=== PATIENT | male | born 1975 | race Caucasian/White ===

== ENCOUNTER 2017-01-05 23:34 | Emergency (ER) | payer MEDICAID, OTHER ==
[2017-01-05 23:46] VITALS: TEMP 98.6
--- NOTE | 2017-01-05 23:51 | C.PDOC ---
History Of Present Illness 41 yo male, hx of schziprhenia, dm, presents with "blister to 1st digit on right foot, plantar surface, and posterior foot" . and b/l leg swelling. pt states symptoms started yesterday. pt states he was d/c from [facility] floor last week and "given a cream" for the feet, unsure of name. no fevers, no n/v/d, trauma, or other complaints Time Seen by Provider: 01/05/17 23:48 Chief Complaint (Nursing): Lower Extremity Problem/Injury Past Medical History Reviewed: Historical Data, Nursing Documentation, Vital Signs Vital Signs: Last Vital Signs Temp 98.6 F 01/05/17 23:43 Pulse 70 01/06/17 01:02 Resp 14 01/06/17 01:02 BP 118/78 01/06/17 01:02 Pulse Ox 99 01/06/17 02:34 - Medical History PMH: Diabetes, HTN, Paranoia, Schizophrenia Family History: States: Unknown Family Hx - Social History Hx Tobacco Use: No Hx Alcohol Use: No Hx Substance Use: No - Immunization History Hx Tetanus Toxoid Vaccination: No Hx Influenza Vaccination: No Hx Pneumococcal Vaccination: No Review Of Systems Except As Marked, All Systems Reviewed And Found Negative. Skin: Positive for: Other (ulcer to 1st digit on left) Physical Exam - Physical Exam Appears: Well, No Acute Distress, Other (ambulatory in er in nad) Skin: Normal Color, Warm, Dry Eye(s): bilateral: Normal Inspection, PERRL, EOMI Nose: Normal Throat: Normal Neck: Normal Cardiovascular: Rhythm Regular Respiratory: Normal Breath Sounds Gastrointestinal/Abdominal: Normal Exam Back: Normal Inspection Extremity: Normal ROM, No Deformity, Other ((+)small <0.5 cm ulcer to first toe , superficial, minimal loss of epidermis minimal ulcer to calcaneous and plantar surface, no surrouding erythema, no purlent d/c. no ttp. ) ED Course And Treatment - Laboratory Results Result Diagrams: 01/05/17 23:50 01/05/17 23:50 O2 Sat by Pulse Oximetry: 99 Medical Decision Making Medical Decision Making: suspect ulcer 2/2 dm. no e/o of active infection. r/o dvt. dimer pending 1254: labs foot xr neg. advise supportive care and outpt f/u. labs unremarkable. no leukocytosis. blister x 1 day, doubt osteo. given wound care f/ u. mild hyperglyecmia, no e/o of dka. pt encouraged to seek wound care for diabetes. strict return precautions advised. Disposition - Disposition Referrals: [facility] [Outside] [facility] [Outside] [facility] [Outside] [facility] [Outside] Disposition: HOME/ ROUTINE Disposition Time: 00:51 Condition: STABLE Additional Instructions: please follow up with specialist/clinic return to er with worsening symptoms or concerns. Prescriptions: Bacitracin OINT 1 applic TP DAILY #7 tube Instructions: Diabetic Foot Care (ED), Diabetic Foot Ulcers (ED) - Clinical Impression Clinical Impression: Foot ulcer
[2017-01-06 00:30] LABS: BASO % 0.5 % (0.0-2.0); EOS # 0.1 K/uL (0.0-0.7); EOS % 1.6 % (0.0-4.0); HEMOGLOBIN 11.5 g/dL (12.0-18.0); LYMPH # 1.2 K/uL (1.0-4.3); LYMPH % 13.2 % (20.0-40.0); MEAN CELL VOLUME 86.1 fL (80.0-94.0); MEAN CORPUSCULAR HEMOGLOBIN 27.7 pg (27.0-31.0); MEAN CORPUSCULAR HGB CONC 32.2 g/dL (33.0-37.0); MEAN PLATELET VOLUME 8.8 fL (7.2-11.7); MONO # 0.6 K/uL (0.0-0.8); MONO % 6.1 % (0.0-10.0); NEUT # 7.2 K/uL (1.8-7.0); NEUT % 78.6 % (50.0-75.0); RBC 4.16 Mil/uL (4.40-5.90); RED CELL DISTRIBUTION WIDTH 13.5 % (11.5-14.5); WHITE BLOOD COUNT 9.2 K/uL (4.8-10.8)
[2017-01-06 00:35] LABS: ALBUMIN 3.8 g/dL (3.5-5.0)
[2017-01-06 00:38] LABS: ALB/GLOB RATIO 1.2 (1.0-2.1); AST/SGOT 29 U/L (17-59); BLOOD UREA NITROGEN 17 mg/dL (9-20); GFR AFRICAN-AMERICAN > 60; GFR NON-AFRICAN AMERICAN > 60
[2017-01-06 00:39] LABS: ALT/SGPT 33 U/L (21-72); CALCIUM 9.2 mg/dl (8.6-10.4)
[2017-01-06 00:46] LABS: PARTIAL THROMBOPLASTIN TIME 32 SECONDS (21-34); PROTHROMBIN TIME 11.7 SECONDS (9.7-12.2)
[2017-01-06 00:47] LABS: D DIMER < 200 ng/mlDDU (0-243)
[2017-01-06 01:03] VITALS: BP 118/78; PULSE 70; RESP 14
[2017-01-06 01:13] VITALS: O2SAT 99
--- NOTE | 2017-01-06 09:13 | RAD ---
PROCEDURE: Right Foot Radiographs. HISTORY: foot pain COMPARISON: None. FINDINGS: BONES: No evidence of acute displaced fracture nor dislocation. The osseous appear intact. No cortical destructive changes. Small plantar posterior calcaneal surfaces in the right noted. JOINTS: Normal. SOFT TISSUES: Mild vascular calcifications. No radiopaque foreign body seen. OTHER FINDINGS: None. IMPRESSION: No e evidence of acute displaced fracture nor dislocation. . If symptoms persist or occult fracture suspected clinically recommend repeat radiographs 5-10 days as most fractures should become radiographically evident this timeframe.
== END 2017-01-06 01:00 | disposition home or self-care (01) ==
LOC: C.ER 23:34
DX: L97.529 Non-pressure chronic ulcer of other part of left foot with unspecified severity (principal)

== ENCOUNTER 2017-02-23 19:29 | Emergency (ER) | payer OTHER ==
--- NOTE | 2017-02-23 20:00 | C.PDOC ---
History Of Present Illness 41 y/o male hx of IDDM presents to the ED c/o abdominal pain, nausea, vomiting, leg and foot pain that started yesterday .The patient denies fever, chills, and headache. Time Seen by Provider: 02/23/17 20:00 Chief Complaint (Nursing): Abdominal Pain History Per: Patient History/Exam Limitations: no limitations Onset/Duration Of Symptoms: Days Current Symptoms Are (Timing): Still Present Past Medical History Reviewed: Historical Data, Nursing Documentation, Vital Signs Vital Signs: Last Vital Signs Temp 100.9 F H 02/23/17 19:43 Pulse 115 H 02/23/17 19:43 Resp 18 02/23/17 19:43 BP 138/85 02/23/17 19:43 Pulse Ox 99 02/23/17 20:28 - Medical History PMH: Diabetes, HTN, Paranoia, Schizophrenia Surgical History: No Surg Hx Family History: States: Unknown Family Hx - Social History Hx Tobacco Use: No Hx Alcohol Use: No Hx Substance Use: No - Immunization History Hx Tetanus Toxoid Vaccination: No Hx Influenza Vaccination: No Hx Pneumococcal Vaccination: No Review Of Systems Except As Marked, All Systems Reviewed And Found Negative. Constitutional: Negative for: Fever, Chills Respiratory: Negative for: Shortness of Breath Gastrointestinal: Positive for: Nausea, Vomiting, Abdominal Pain, Other (The pain level is a 4 out of 10. ) Musculoskeletal: Positive for: Foot Pain Physical Exam - Physical Exam Appears: Non-toxic, No Acute Distress, Other (speaking in complete sentences ) Skin: Warm, Dry Head: Normacephalic Lips: Other (dry) Neck: Supple Chest: Symmetrical Cardiovascular: Rhythm Regular Respiratory: No Rales, No Rhonchi Gastrointestinal/Abdominal: Soft, No Tenderness, No Guarding, No Rebound, Other (mild diffuse discomfort ) Extremity: No Deformity, No Swelling Neurological/Psych: Oriented x3 ED Course And Treatment - Laboratory Results Result Diagrams: 02/23/17 20:35 02/23/17 20:35 O2 Sat by Pulse Oximetry: 99 (RA) Medical Decision Making Medical Decision Making: Upon provider reevaluation patient is feeling better, is medically stable, and requires no further treatment in the ED at this time. Patient will be discharged home with Rx for zofran . Counseling was provided and all questions were answered regarding diagnosis and need for follow up with dr mason. There is agreement to discharge plan. Return if symptoms persist or worsen. Disposition Counseled Patient/Family Regarding: Studies Performed, Diagnosis, Need For Followup, Rx Given - Disposition Referrals: Rigoberto Mason MD [Medical Doctor] - Disposition: HOME/ ROUTINE Disposition Time: 20:00 Condition: FAIR Prescriptions: Ondansetron ODT [Zofran ODT] 1 odt PO BID PRN #10 odt PRN Reason: Nausea/Vomiting Instructions: Acute Nausea and Vomiting (ED), Diabetic Hyperglycemia (ED) Forms: [employer] (Estonian) - POA Present On Arrival: Poor Glycemic Control - Clinical Impression Clinical Impression: Nausea, Vomiting, Hyperglycemia - Scribe Statement The provider has reviewed the documentation as recorded by the Scribterri Patel All medical record entries made by the Scribe were at my direction and personally dictated by me. I have reviewed the chart and agree that the record accurately reflects my personal performance of the history, physical exam, medical decision making, and the department course for this patient. I have also personally directed, reviewed, and agree with the discharge instructions and disposition.
[2017-02-23] MEDS ORDERED: Sodium Chloride 0.9% 1,000 ML IV ONE (20:28)
[2017-02-23] MEDS ORDERED: Sodium Chloride 0.9% 1,000 ML ONE (20:38)
[2017-02-23 20:40] LABS: BASO % 0.2 % (0.0-2.0); EOS % 0.3 % (0.0-4.0); HEMATOCRIT 41.8 % (35.0-51.0); LYMPH # 0.4 K/uL (1.0-4.3); LYMPH % 3.7 % (20.0-40.0); MEAN CORPUSCULAR HGB CONC 33.7 g/dL (33.0-37.0); MEAN PLATELET VOLUME 9.4 fL (7.2-11.7); MONO # 0.6 K/uL (0.0-0.8); MONO % 4.8 % (0.0-10.0); PLATELET COUNT 249 K/uL (130-400); RED CELL DISTRIBUTION WIDTH 12.6 % (11.5-14.5); WHITE BLOOD COUNT 11.6 K/uL (4.8-10.8)
[2017-02-23 20:43] LABS: RBC URINE < 1 /hpf (0-3); URINE BACTERIA RARE (<OCC); URINE BILIRUBIN NEGATIVE (NEGATIVE); URINE BLOOD NEGATIVE (NEGATIVE); URINE COLOR Yellow (YELLOW); URINE GLUCOSE (UA) 3+ mg/dL (Normal); URINE KETONE 1+ mg/dL (NEGATIVE); URINE LEUKOCYTE ESTERASE NEG Leu/uL (Negative); URINE PROTEIN 2+ mg/dL (NEGATIVE); URINE UROBILINOGEN NORMAL mg/dL (0.2-1.0); WBC URINE < 1 /hpf (0-5)
[2017-02-23 20:50] LABS: ALB/GLOB RATIO 1.3 (1.0-2.1); ALKALINE PHOSPHATASE 112 U/L (38-126); ALT/SGPT 31 U/L (21-72); AST/SGOT 20 U/L (17-59); BILIRUBIN,TOTAL 1.5 mg/dL (0.2-1.3); BLOOD UREA NITROGEN 26 mg/dL (9-20); CALCIUM 10.4 mg/dl (8.6-10.4); CARBON DIOXIDE 28 mmol/L (22-30); CHLORIDE 89 mmol/L (98-107); GFR AFRICAN-AMERICAN > 60; POTASSIUM 4.8 mmol/L (3.6-5.2); SODIUM 136 mmol/L (132-148)
[2017-02-23 20:51] LABS: GLUCOSE,RANDOM 448 mg/dL (75-110)
[2017-02-23 20:58] LABS: VENOUS BLOOD GAS BASE EXCESS 3.1 mmol/L (0.0-2.0); VENOUS BLOOD GAS PCO2 51 mmHg (40-60); VENOUS BLOOD PH 7.37 (7.32-7.43)
[2017-02-23 21:07] LABS: NEUTROPHIL 81 % (50-75); TOTAL CELLS COUNTED 100
[2017-02-23 21:08] LABS: LARGE PLATELETS PRESENT
[2017-02-23] MEDS ORDERED: (Novolin R) Insulin Human Regular 100 units/ml vial IV ONE (22:39)
[2017-02-23] MEDS ORDERED: (Novolin R) Insulin Human Regular 100 units/ml vial ONE (22:41)
[2017-02-24 00:07] VITALS: BP 126/86; PULSE 114; RESP 16; TEMP 97.6; O2SAT 100
== END 2017-02-24 00:07 | disposition home or self-care (01) ==
LOC: C.ER 19:29
DX: R11.2 Nausea with vomiting, unspecified (principal); E11.65 Type 2 diabetes mellitus with hyperglycemia
CPT/HCPCS: 80053; 81001; 82009; 82803; 82948; 83690; 85025; 96361; 96374; 96375; 99285; J1885; J2405; J7040

== ENCOUNTER 2018-05-01 08:57 | Emergency (ER) | payer OTHER ==
[2018-05-01 09:09] VITALS: BMI 25.1
[2018-05-01 09:15] VITALS: TEMP 97.9
[2018-05-01] MEDS ORDERED: Sodium Chloride 0.9% 1,000 ML IV ONE (09:32)
--- NOTE | 2018-05-01 09:32 | C.PDOC ---
History Of Present Illness 42 y/o male with history of DM and HTN presents to ED with c/o nausea, vomiting and diarrhea associated with diffuse abdominal pain since last night after eating pork and rice. Patient states no one else ate same food and reports last episode of vomiting [employer]. Patient denies recent travel, sick contacts, blood in stool or in emesis, dizziness, chest pain, fever, chills, dysuria, hematuria or any other complaints at this time. Time Seen by Provider: 05/01/18 09:14 Chief Complaint (Nursing): Abdominal Pain History Per: Patient History/Exam Limitations: no limitations Onset/Duration Of Symptoms: Days Current Symptoms Are (Timing): Still Present Location Of Pain/Discomfort: Diffuse Past Medical History Reviewed: Historical Data, Nursing Documentation, Vital Signs Vital Signs: Last Vital Signs Temp 97.9 F 05/01/18 09:09 Pulse 102 H 05/01/18 09:09 Resp 20 05/01/18 09:09 BP 144/89 05/01/18 09:09 Pulse Ox 100 05/01/18 09:09 - Medical History PMH: Asthma, Diabetes, HTN, Paranoia, Schizophrenia Surgical History: No Surg Hx Family History: States: No Known Family Hx - Social History Hx Tobacco Use: No Hx Alcohol Use: No Hx Substance Use: No - Immunization History Hx Tetanus Toxoid Vaccination: No Hx Influenza Vaccination: Yes Hx Pneumococcal Vaccination: No Review Of Systems Constitutional: Negative for: Fever, Chills Gastrointestinal: Positive for: Nausea, Vomiting, Abdominal Pain, Diarrhea. Negative for: Hematochezia, Hematemesis Genitourinary: Negative for: Dysuria, Hematuria Musculoskeletal: Negative for: Back Pain Skin: Negative for: Rash Physical Exam - Physical Exam Appears: Non-toxic, No Acute Distress Skin: Warm, Dry, No Rash Head: Atraumatic, Normacephalic Eye(s): bilateral: Normal Inspection Oral Mucosa: Moist Neck: Normal ROM, Supple Cardiovascular: Rhythm Regular Respiratory: Normal Breath Sounds, No Rales, No Rhonchi, No Wheezing Gastrointestinal/Abdominal: Bowel Sounds, Soft, No Tenderness, No Guarding, No Rebound Back: No CVA Tenderness Neurological/Psych: Oriented x3, Normal Speech, Normal Cognition ED Course And Treatment - Laboratory Results Result Diagrams: 05/01/18 09:58 05/01/18 09:58 O2 Sat by Pulse Oximetry: 100 (RA) Pulse Ox Interpretation: Normal Medical Decision Making Medical Decision Making: Plan: Blood work, UA ordered. Zofran and IV fluids administered. Progress: 11:25 re eval patient feels better, will po challenge , accu-check, d/c 11:30 Patient tolerated po challenge, able to go home, accu check 285,. Patient will follow up with PMD in 1-2 days. Disposition Counseled Patient/Family Regarding: Studies Performed, Diagnosis, Need For Followup - Disposition Referrals: Rigoberto Mason MD [Medical Doctor] - Disposition: HOME/ ROUTINE Disposition Time: 11:39 Instructions: Diarrhea in Adolescents and Adults, Hyperglycemia, Adult, Clear Liquid Diet, Nausea and Vomiting, Adult Forms: [employer] ([place]), General Discharge Instructions - POA Present On Arrival: None - Clinical Impression Clinical Impression: Nausea and vomiting, Abdominal pain, Diarrhea, Hyperglycemia - Scribe Statement The provider has reviewed the documentation as recorded by the Evangelista Thompson All medical record entries made by the Jermainibterri were at my direction and personally dictated by me. I have reviewed the chart and agree that the record accurately reflects my personal performance of the history, physical exam, medical decision making, and the department course for this patient. I have also personally directed, reviewed, and agree with the discharge instructions and disposition.
[2018-05-01] MEDS ORDERED: Sodium Chloride 0.9% 1,000 ML ONE (09:44)
[2018-05-01 10:07] LABS: BASO % 0.4 % (0.0-2.0); EOS # 0.1 K/uL (0.0-0.7); EOS % 0.8 % (0.0-4.0); LYMPH % 7.6 % (20.0-40.0); MEAN CELL VOLUME 84.1 fL (80.0-94.0); MEAN CORPUSCULAR HEMOGLOBIN 27.4 pg (27.0-31.0); MEAN CORPUSCULAR HGB CONC 32.5 g/dL (33.0-37.0); MEAN PLATELET VOLUME 8.6 fL (7.2-11.7); MONO # 0.6 K/uL (0.0-0.8); MONO % 5.1 % (0.0-10.0); NEUT % 86.1 % (50.0-75.0); PLATELET COUNT 310 K/uL (130-400); RBC 4.75 Mil/uL (4.40-5.90); RED CELL DISTRIBUTION WIDTH 13.3 % (11.5-14.5); WHITE BLOOD COUNT 12.7 K/uL (4.8-10.8)
[2018-05-01 10:09] LABS: SQUAMOUS EPITHIAL < 1 /hpf (0-5); URINE BILIRUBIN NEGATIVE (NEGATIVE); URINE BLOOD NEGATIVE (NEGATIVE); URINE CLARITY Clear (Clear); URINE COLOR Yellow (YELLOW); URINE GLUCOSE (UA) 3+ mg/dL (Normal); URINE LEUKOCYTE ESTERASE NEG Leu/uL (Negative); URINE PROTEIN 2+ mg/dL (NEGATIVE); URINE UROBILINOGEN NORMAL mg/dL (0.2-1.0)
[2018-05-01 10:38] LABS: ALB/GLOB RATIO 1.3 (1.0-2.1); ALBUMIN 4.6 g/dL (3.5-5.0); BLOOD UREA NITROGEN 19 mg/dL (9-20); CALCIUM 9.8 mg/dl (8.6-10.4); GFR NON-AFRICAN AMERICAN > 60; LIPASE 30 U/L (23-300)
[2018-05-01 10:39] LABS: ALT/SGPT 36 U/L (21-72); AST/SGOT 28 U/L (17-59)
[2018-05-01 11:27] VITALS: BP 152/82; PULSE 98; RESP 18
[2018-05-01 11:39] VITALS: O2SAT 100
[2018-05-01 12:11] LABS: LYMPHOCYTE 6 % (20-40); MONOCYTE 5 % (0-10); TOTAL CELLS COUNTED 100
[2018-05-01 12:12] LABS: PLATELET ESTIMATE NORMAL (NORMAL)
[2018-05-01 12:13] LABS: BANDS 3 % (0-2); NEUTROPHIL 86 % (50-75)
== END 2018-05-01 11:48 | disposition home or self-care (01) ==
LOC: C.ER 08:57
DX: R11.2 Nausea with vomiting, unspecified (principal); R10.9 Unspecified abdominal pain; R19.7 Diarrhea, unspecified; E11.65 Type 2 diabetes mellitus with hyperglycemia
CPT/HCPCS: 80053; 81001; 82948; 83690; 85025; 96361; 96374; 99285; J2405; J7030

== ENCOUNTER 2018-11-03 12:14 | Emergency (ER) | payer OTHER ==
[2018-11-03 12:33] VITALS: BMI 300.9
[2018-11-03 12:36] VITALS: TEMP 98.2
--- NOTE | 2018-11-03 13:40 | C.PDOC ---
History Of Present Illness 43-year-old male presents to the ED for evaluation of palpations. Patient also states he feels like his ears are clogged. pt states "his ears are rining and "they go down to his chest". Additional information limited secondary to sayda malhotra being a poor historian. Time Seen by Provider: 11/03/18 13:02 Chief Complaint (Nursing): Palpitations History Per: Patient History/Exam Limitations: other (poor historian ) Onset/Duration Of Symptoms: Days Current Symptoms Are (Timing): Still Present Additional History Per: Patient Past Medical History Reviewed: Historical Data, Nursing Documentation, Vital Signs Vital Signs: Last Vital Signs Temp 98.2 F 11/03/18 12:33 Pulse 90 11/03/18 12:33 Resp 18 11/03/18 12:33 BP 177/99 H 11/03/18 12:33 Pulse Ox 98 11/03/18 12:33 Primary Care Provider: Rigoberto Mason - Medical History PMH: Asthma, Diabetes, HTN, Paranoia, Schizophrenia Surgical History: No Surg Hx Family History: States: Unknown Family Hx - Social History Hx Tobacco Use: No Hx Alcohol Use: No Hx Substance Use: No - Immunization History Hx Tetanus Toxoid Vaccination: No Hx Influenza Vaccination: No Hx Pneumococcal Vaccination: No Review Of Systems ENT: Positive for: Other (clogged sensation to ears ) Cardiovascular: Positive for: Palpitations Physical Exam - Physical Exam Appears: Non-toxic, No Acute Distress Skin: Normal Color, Warm, Dry Head: Atraumatic, Normacephalic Eye(s): bilateral: Normal Inspection Ear(s): Bilateral: Normal Nose: Normal, No Discharge Oral Mucosa: Moist Throat: Normal, No Erythema, No Exudate Neck: Supple Chest: Symmetrical, No Deformity, No Tenderness Cardiovascular: Rhythm Regular, No Murmur Respiratory: Normal Breath Sounds, No Rales, No Rhonchi, No Wheezing Gastrointestinal/Abdominal: Soft, No Tenderness, No Guarding, No Rebound Extremity: Normal ROM, Capillary Refill (less than 2 seconds ) Neurological/Psych: Oriented x3, Normal Speech, Normal Cognition ED Course And Treatment - Laboratory Results Result Diagrams: 11/03/18 13:41 11/03/18 13:41 ECG: Interpreted By Me, Viewed By Me ECG Rhythm: Sinus Rhythm Interpretation Of ECG: Normal Sinus Rhythm at rate 89bpm. No ST/T wave changes. Rate From EC O2 Sat by Pulse Oximetry: 98 (on RA) Pulse Ox Interpretation: Normal Medical Decision Making Medical Decision Making: Progress: Bloodwork, CXR, and EKG ordered and reviewed. atypical palpiatiuons labs neg cxr neg. no e/o of om. pt in nad. advise outpt fu with ent. Disposition - Disposition Referrals: Jimmy Ramirez MD [Staff Provider] - Chadwick Golden MD [Staff Provider] - Disposition: HOME/ ROUTINE Disposition Time: 14:00 Condition: STABLE Additional Instructions: follow up with specialsit. return to er with worsening. Instructions: Tinnitus (Ringing in the Ears), Palpitations Forms: [employer] (Sudanese) - Clinical Impression Clinical Impression: Tinnitus - Scribe Statement The provider has reviewed the documentation as recorded by the Scribe (Celia Reyes) Provider Attestation: All medical record entries made by the Scribe were at my direction and personally dictated by me. I have reviewed the chart and agree that the record accurately reflects my personal performance of the history, physical exam, medical decision making, and the department course for this patient. I have also personally directed, reviewed, and agree with the discharge instructions and disposition.
[2018-11-03 13:45] LABS: BASO % 0.5 % (0.0-2.0); EOS # 0.2 K/uL (0.0-0.7); EOS % 3.6 % (0.0-4.0); HEMOGLOBIN 11.7 g/dL (12.0-18.0); LYMPH # 1.5 K/uL (1.0-4.3); LYMPH % 26.5 % (20.0-40.0); MEAN CELL VOLUME 82.9 fL (80.0-94.0); MEAN CORPUSCULAR HEMOGLOBIN 27.9 pg (27.0-31.0); MEAN CORPUSCULAR HGB CONC 33.7 g/dL (33.0-37.0); MEAN PLATELET VOLUME 8.4 fL (7.2-11.7); MONO # 0.3 K/uL (0.0-0.8); MONO % 6.1 % (0.0-10.0); NEUT # 3.6 K/uL (1.8-7.0); NEUT % 63.3 % (50.0-75.0); NRBC % 0.1 % (0.0-2.0); RBC 4.17 Mil/uL (4.40-5.90); RED CELL DISTRIBUTION WIDTH 12.8 % (11.5-14.5)
[2018-11-03 13:47] LABS: WHITE BLOOD COUNT 5.6 K/uL (4.8-10.8)
[2018-11-03 14:01] LABS: ALB/GLOB RATIO 1.2 (1.0-2.1); ALBUMIN 3.8 g/dL (3.5-5.0); BLOOD UREA NITROGEN 13 mg/dL (9-20); CALCIUM 9.4 mg/dl (8.6-10.4); GFR NON-AFRICAN AMERICAN > 60
[2018-11-03 14:05] LABS: ALT/SGPT 18 U/L (21-72); AST/SGOT 29 U/L (17-59)
[2018-11-03 14:07] LABS: PROTHROMBIN TIME 11.3 SECONDS (9.7-12.2)
--- NOTE | 2018-11-03 14:26 | RAD ---
HISTORY: chest pain COMPARISON: Chest x-ray performed 04/01/13 TECHNIQUE: Chest PA and lateral, 2 views FINDINGS: Examination limited by habitus. LUNGS: No focal consolidation. Please note that chest x-ray has limited sensitivity for the detection of pulmonary masses. PLEURA: No significant pleural effusion identified. No definite pneumothorax . CARDIOVASCULAR: The cardiomediastinal silhouette appears within normal limits of size. No atherosclerotic calcification present. OSSEOUS STRUCTURES: No acute osseous abnormality identified. VISUALIZED UPPER ABDOMEN: Unremarkable. OTHER FINDINGS: None. IMPRESSION: No acute findings identified.
[2018-11-03 14:59] VITALS: BP 149/92; PULSE 81; RESP 20
[2018-11-03 15:21] VITALS: O2SAT 98
== END 2018-11-03 14:55 | disposition home or self-care (01) ==
LOC: C.ER 12:14
DX: H93.19 Tinnitus, unspecified ear (principal)